=== PATIENT | female | born 1980 | race Caucasian/White ===

== ENCOUNTER → 2024-04-13 | Outpatient (CLI) | payer BC ==
--- NOTE | 2024-04-13 08:35 | US ---
EXAMINATION TYPE: US liver DATE OF EXAM: 04/13/2024 COMPARISON: NONE CLINICAL INDICATION: Female, 43 years old with history of R74.01 ELEVATED ASTS; elevated labs, no sym ptoms TECHNIQUE: Grayscale and color Doppler imaging of the right upper quadrant was performed. FINDINGS: EXAM MEASUREMENTS: Liver Length: 15.1 cm Gallbladder Wall: 0.2 cm CBD: 0.6 cm Right Kidney: 9.0 x 4.0 x 5.9 cm Pancreas: portions seen appear wnl Liver: difficult to penetrate Gallbladder: wnl Evidence for sonographic Munoz's sign: no CBD: wnl Right Kidney: wnl IMPRESSION: 1. No evidence for acute process. 2. Hepatic steatosis. [facility], , 04/13/2024 8:33 AM
== END | disposition home or self-care (01) ==
LOC: RADUSWWP 07:35
PROVIDERS: ATTEND Family Medicine
DX: K76.0 Fatty (change of) liver, not elsewhere classified (principal); R74.01 Elevation of levels of liver transaminase levels
CPT/HCPCS: 76705